=== PATIENT | female | born 1945 | race Caucasian/White ===

== ENCOUNTER → 2022-02-25 | Outpatient (CLI) | payer OTHER ==
[~2022-02-25] MED LIST: DEXTROAMPH SACC30 MG PO; OXYBUTYNIN CHLOR5 MG PO
== END | disposition home or self-care (01) ==
LOC: RESCLI 02:03
PROVIDERS: ATTEND Internal Medicine
DX: I48.91 Unspecified atrial fibrillation (principal); I73.9 Peripheral vascular disease, unspecified; D45 Polycythemia vera; Z88.8 Allergy status to other drugs, medicaments and biological substances; Z90.710 Acquired absence of both cervix and uterus; Z98.890 Other specified postprocedural states; Z79.01 Long term (current) use of anticoagulants; Z79.899 Other long term (current) drug therapy

== ENCOUNTER → 2022-06-02 | Outpatient (CLI) | payer OTHER | END | disposition home or self-care (01) | LOC: RESCLI 14:59 | PROVIDERS: ATTEND Family Medicine | DX: I48.91 Unspecified atrial fibrillation (principal); I73.9 Peripheral vascular disease, unspecified; M54.9 Dorsalgia, unspecified; D45 Polycythemia vera; Z98.890 Other specified postprocedural states; Z79.899 Other long term (current) drug therapy ==

== ENCOUNTER → 2022-11-24 | Outpatient (CLI) | payer OTHER | END | disposition home or self-care (01) | LOC: RESCLI 01:28 | PROVIDERS: ATTEND Internal Medicine | DX: I44.4 Left anterior fascicular block (principal); R00.0 Tachycardia, unspecified; I48.91 Unspecified atrial fibrillation; D45 Polycythemia vera; M54.9 Dorsalgia, unspecified; I73.9 Peripheral vascular disease, unspecified; J40 Bronchitis, not specified as acute or chronic; I82.90 Acute embolism and thrombosis of unspecified vein; Z98.890 Other specified postprocedural states; Z79.01 Long term (current) use of anticoagulants; Z79.899 Other long term (current) drug therapy; Z88.8 Allergy status to other drugs, medicaments and biological substances ==

== ENCOUNTER → 2024-05-27 | Outpatient (CLI) | payer MEDICARE ==
[~2024-05-27] MED LIST changes: +AMLODIPINE BESYL5 MG PO; +BENADRYL ALLERG25 M5 PO; +ELIQUIS5 M1 PO; +FLUCONAZOLE100 MG PO; +HYDREA500 M1 PO; +HYDROCODONE-AC1 EAC1 PO; +LIDOCAINE15 GM T; +LOPERAMIDE HCL2 M1 PO; +MELATONIN3 MG PO; +MEROPENEM-1 GM/50 ML IV; +METOPROLOL TART50 M1 PO; +MIRALAX17 GM PO; +MORPHINE SULFAT15 M7 PO; +NEURONTIN300 MG PO; +NYAMYC15 GM T; +ONDANSETRON HYDR4 MG PO; +REMERON15 M2 PO; +SILVADENE,SSD C50 GM T; +TYLENOL325 M1 PO; +VITAMIN B121000 MC3 PO; +VITAMIN C500 M8 PO; +VITAMIN D250 MCG PO; +ZYVOX600 MG PO; +[UNRECOGNIZED DRUG - OTHER] PO
== END | disposition home or self-care (01) ==
LOC: WOUNDCARE 00:15
PROVIDERS: ATTEND Nurse Practitioner Family
DX: L89.152 Pressure ulcer of sacral region, stage 2 (principal); L89.616 Pressure-induced deep tissue damage of right heel; L89.896 Pressure-induced deep tissue damage of other site; I70.234 Atherosclerosis of native arteries of right leg with ulceration of heel and midfoot; L97.811 Non-pressure chronic ulcer of other part of right lower leg limited to breakdown of skin; I70.238 Atherosclerosis of native arteries of right leg with ulceration of other part of lower leg; L97.411 Non-pressure chronic ulcer of right heel and midfoot limited to breakdown of skin; I10 Essential (primary) hypertension; I48.91 Unspecified atrial fibrillation; M19.90 Unspecified osteoarthritis, unspecified site; M79.7 Fibromyalgia; M10.9 Gout, unspecified; Z87.891 Personal history of nicotine dependence; Z86.73 Personal history of transient ischemic attack (TIA), and cerebral infarction without residual deficits; Z89.512 Acquired absence of left leg below knee; Z79.899 Other long term (current) drug therapy

== ENCOUNTER → 2024-06-02 | Outpatient (CLI) | payer MEDICARE | END | disposition home or self-care (01) | LOC: WOUNDCARE 01:57 | PROVIDERS: ATTEND Nurse Practitioner Family | DX: L89.896 Pressure-induced deep tissue damage of other site (principal); L89.152 Pressure ulcer of sacral region, stage 2; L89.616 Pressure-induced deep tissue damage of right heel; I70.234 Atherosclerosis of native arteries of right leg with ulceration of heel and midfoot; L97.411 Non-pressure chronic ulcer of right heel and midfoot limited to breakdown of skin; I70.238 Atherosclerosis of native arteries of right leg with ulceration of other part of lower leg; L97.811 Non-pressure chronic ulcer of other part of right lower leg limited to breakdown of skin; I48.91 Unspecified atrial fibrillation; I10 Essential (primary) hypertension; M19.90 Unspecified osteoarthritis, unspecified site; M10.9 Gout, unspecified; M79.7 Fibromyalgia; Z87.891 Personal history of nicotine dependence; Z89.512 Acquired absence of left leg below knee; Z79.899 Other long term (current) drug therapy ==

== ENCOUNTER → 2024-06-10 | Outpatient (CLI) | payer MEDICARE | END | disposition home or self-care (01) | LOC: WOUNDCARE 02:16 | PROVIDERS: ATTEND Nurse Practitioner Family | DX: L89.616 Pressure-induced deep tissue damage of right heel (principal); L89.896 Pressure-induced deep tissue damage of other site; L89.152 Pressure ulcer of sacral region, stage 2; L89.151 Pressure ulcer of sacral region, stage 1; I70.234 Atherosclerosis of native arteries of right leg with ulceration of heel and midfoot; L97.411 Non-pressure chronic ulcer of right heel and midfoot limited to breakdown of skin; I70.238 Atherosclerosis of native arteries of right leg with ulceration of other part of lower leg; L97.811 Non-pressure chronic ulcer of other part of right lower leg limited to breakdown of skin; I10 Essential (primary) hypertension; L60.2 Onychogryphosis; B35.1 Tinea unguium; I48.91 Unspecified atrial fibrillation; M19.90 Unspecified osteoarthritis, unspecified site; M10.9 Gout, unspecified; Z89.512 Acquired absence of left leg below knee; Z87.891 Personal history of nicotine dependence; Z79.899 Other long term (current) drug therapy ==

== ENCOUNTER → 2024-06-16 | Outpatient (CLI) | payer MEDICARE | END | disposition home or self-care (01) | LOC: WOUNDCARE 02:42 | PROVIDERS: ATTEND Nurse Practitioner Family | DX: L89.896 Pressure-induced deep tissue damage of other site (principal); L89.616 Pressure-induced deep tissue damage of right heel; L89.152 Pressure ulcer of sacral region, stage 2; I70.234 Atherosclerosis of native arteries of right leg with ulceration of heel and midfoot; L97.411 Non-pressure chronic ulcer of right heel and midfoot limited to breakdown of skin; I70.238 Atherosclerosis of native arteries of right leg with ulceration of other part of lower leg; L97.811 Non-pressure chronic ulcer of other part of right lower leg limited to breakdown of skin; L60.2 Onychogryphosis; I48.91 Unspecified atrial fibrillation; I10 Essential (primary) hypertension; B35.1 Tinea unguium; M19.90 Unspecified osteoarthritis, unspecified site; M10.9 Gout, unspecified; M79.7 Fibromyalgia; Z87.891 Personal history of nicotine dependence; Z89.512 Acquired absence of left leg below knee; Z79.899 Other long term (current) drug therapy ==

== ENCOUNTER → 2024-06-23 | Outpatient (CLI) | payer MEDICARE | END | disposition home or self-care (01) | LOC: WOUNDCARE 00:42 | PROVIDERS: ATTEND Nurse Practitioner Family | DX: L89.616 Pressure-induced deep tissue damage of right heel (principal); L89.896 Pressure-induced deep tissue damage of other site; I70.238 Atherosclerosis of native arteries of right leg with ulceration of other part of lower leg; L97.811 Non-pressure chronic ulcer of other part of right lower leg limited to breakdown of skin; I70.234 Atherosclerosis of native arteries of right leg with ulceration of heel and midfoot; L97.411 Non-pressure chronic ulcer of right heel and midfoot limited to breakdown of skin; L89.152 Pressure ulcer of sacral region, stage 2; I10 Essential (primary) hypertension; L60.2 Onychogryphosis; B35.1 Tinea unguium; I48.91 Unspecified atrial fibrillation; M19.90 Unspecified osteoarthritis, unspecified site; M10.9 Gout, unspecified; F17.210 Nicotine dependence, cigarettes, uncomplicated; Z86.73 Personal history of transient ischemic attack (TIA), and cerebral infarction without residual deficits; Z89.512 Acquired absence of left leg below knee; Z79.899 Other long term (current) drug therapy ==

== ENCOUNTER → 2024-06-30 | Outpatient (CLI) | payer MEDICARE | END | disposition home or self-care (01) | LOC: WOUNDCARE 02:19 | PROVIDERS: ATTEND Nurse Practitioner Family | DX: L89.896 Pressure-induced deep tissue damage of other site (principal); L89.616 Pressure-induced deep tissue damage of right heel; L89.152 Pressure ulcer of sacral region, stage 2; I70.234 Atherosclerosis of native arteries of right leg with ulceration of heel and midfoot; L97.411 Non-pressure chronic ulcer of right heel and midfoot limited to breakdown of skin; I70.238 Atherosclerosis of native arteries of right leg with ulceration of other part of lower leg; L97.811 Non-pressure chronic ulcer of other part of right lower leg limited to breakdown of skin; L60.2 Onychogryphosis; B35.1 Tinea unguium; I48.91 Unspecified atrial fibrillation; M19.90 Unspecified osteoarthritis, unspecified site; M10.9 Gout, unspecified; F17.210 Nicotine dependence, cigarettes, uncomplicated; Z86.73 Personal history of transient ischemic attack (TIA), and cerebral infarction without residual deficits; Z79.899 Other long term (current) drug therapy; Z89.512 Acquired absence of left leg below knee ==

== ENCOUNTER 2024-07-08 15:29 | Emergency (ER) | payer MEDICARE ==
[~2024-07-08] VITALS: Ht 157.4 cm; Wt 68.0 kg
[~2024-07-08 15:29] MED LIST changes: -CLEOCIN HCL300 MG PO
[2024-07-08 16:04] LABS: HEMATOCRIT 29.1 % (37.0-47.0); MEAN CELL VOLUME 89.5 fl (81.0-99.0); MEAN CORPUSCULAR HGB 27.1 pg (27.0-31.0); MEAN CORPUSCULAR HGB CONC 30.2 g/dl (33.0-37.0); NUCLEATED RED BLOOD CELL 0.5 % (0.0-0.0); PLATELET COUNT AUTOMATED 165 10*3/uL (130-400); RED BLOOD COUNT 3.25 10*6/uL (4.10-5.10); RED CELL DISTRI WIDTH 16.3 % (0-14.5); WHITE BLOOD COUNT 7.6 10*3/uL (4.8-10.8)
[2024-07-08 16:20] LABS: POTASSIUM 4.5 mmol/L (3.4-5.1)
[2024-07-08 16:25] LABS: MANUAL DIFF REFLEX YES
[2024-07-08 16:28] LABS: OVALOCYTES MODERATE; PLATELET SUFFICIENCY NORMAL (NORMAL); SCHISTOCYTES FEW; TOTAL CELLS COUNTED 100 #CELLS
[2024-07-08] MEDS ORDERED: CLEOCIN HCL300 MG PO (17:29)
[2024-07-08] MEDS ORDERED: CLINDAMYCIN HCL 300 MG CAPSULE PO ONE (17:30)
== END 2024-07-08 17:37 | disposition home or self-care (01) ==
LOC: ED 15:29
PROVIDERS: Nurse Practitioner Family
DX: L03.115 Cellulitis of right lower limb (principal); M79.662 Pain in left lower leg; L53.9 Erythematous condition, unspecified; F17.200 Nicotine dependence, unspecified, uncomplicated; Z88.1 Allergy status to other antibiotic agents; Z88.8 Allergy status to other drugs, medicaments and biological substances; Z91.041 Radiographic dye allergy status; Z79.899 Other long term (current) drug therapy; Z89.512 Acquired absence of left leg below knee; Z90.710 Acquired absence of both cervix and uterus

== ENCOUNTER → 2024-07-08 | Outpatient (CLI) | payer MEDICARE ==
[~2024-07-08] MED LIST changes: +CLEOCIN HCL300 MG PO
== END | disposition home or self-care (01) ==
LOC: WOUNDCARE 02:02
PROVIDERS: ATTEND Nurse Practitioner Family
DX: L89.616 Pressure-induced deep tissue damage of right heel (principal); L89.896 Pressure-induced deep tissue damage of other site; L89.512 Pressure ulcer of right ankle, stage 2; I70.234 Atherosclerosis of native arteries of right leg with ulceration of heel and midfoot; L97.411 Non-pressure chronic ulcer of right heel and midfoot limited to breakdown of skin; I70.238 Atherosclerosis of native arteries of right leg with ulceration of other part of lower leg; L97.811 Non-pressure chronic ulcer of other part of right lower leg limited to breakdown of skin; L60.2 Onychogryphosis; B35.1 Tinea unguium; I10 Essential (primary) hypertension; I48.91 Unspecified atrial fibrillation; M19.90 Unspecified osteoarthritis, unspecified site; M10.9 Gout, unspecified; Z86.73 Personal history of transient ischemic attack (TIA), and cerebral infarction without residual deficits; Z89.512 Acquired absence of left leg below knee; Z98.890 Other specified postprocedural states; Z87.891 Personal history of nicotine dependence; Z79.899 Other long term (current) drug therapy

== ENCOUNTER → 2024-07-14 | Outpatient (CLI) | payer MEDICARE ==
[~2024-07-14] MED LIST changes: +CLEOCIN HCL300 MG PO
== END | disposition home or self-care (01) ==
LOC: WOUNDCARE 02:14
PROVIDERS: ATTEND Nurse Practitioner Family
DX: L89.616 Pressure-induced deep tissue damage of right heel (principal); L89.152 Pressure ulcer of sacral region, stage 2; I70.234 Atherosclerosis of native arteries of right leg with ulceration of heel and midfoot; L97.411 Non-pressure chronic ulcer of right heel and midfoot limited to breakdown of skin; I70.238 Atherosclerosis of native arteries of right leg with ulceration of other part of lower leg; L97.811 Non-pressure chronic ulcer of other part of right lower leg limited to breakdown of skin; L60.2 Onychogryphosis; B35.1 Tinea unguium; I48.91 Unspecified atrial fibrillation; I10 Essential (primary) hypertension; M19.90 Unspecified osteoarthritis, unspecified site; M10.9 Gout, unspecified; M79.7 Fibromyalgia; Z89.512 Acquired absence of left leg below knee

== ENCOUNTER 2025-03-03 22:43 | Inpatient (IN) | payer OTHER ==
[~2025-03-03] VITALS: Ht 157.5 cm; Wt 94.3 kg
[~2025-03-03 22:43] MED LIST changes: +CALCIUM 500 MG1 EAC5 PO; +DICYCLOMINE HYD20 MG PO; +IRON325 M1 PO; +KLAYESTA15 GM T; +NEXIUM40 M1 PO; +Ondansetron4 MG PO; +TYLENOL325 M2 PO; +VITAMIN C500 M4 PO; +VITAMIN D350 MC3 PO; +ZOLOFT25 MG PO
[2025-03-03] MEDS ORDERED: ATROPINE SULFATE 1% 2 ML BOTTLE SL PRN (23:20)
[2025-03-03] MEDS ORDERED: OXYCODONE 20 MG/ML SL PRN (23:20)
[2025-03-03] MEDS ORDERED: HYDROmorphONE Hydrochloride 0.5 MG/0.5 ML SYRINGE IV PRN (23:20)
[2025-03-04] VITALS: BP 62/37
[2025-03-04] MEDS ORDERED: ATROPINE SULFATE 1% 2 ML BOTTLE SL PRN (07:30)
[2025-03-04 08:00] VITALS: BP 88/66
[2025-03-04] MEDS ORDERED: HYDROmorphONE Hydrochloride 0.5 MG/0.5 ML SYRINGE IV PRN (13:25)
[2025-03-04 16:00] VITALS: BP 71/54
[2025-03-04 20:00] VITALS: BP 36/14
[2025-03-05] VITALS: BP 57/21
[2025-03-05 08:00] VITALS: BP 53/10
[2025-03-05 12:00] VITALS: BP 40/0
== END 2025-03-05 17:56 | DRG 189 ==
LOC: 4E 22:43
PROVIDERS: ADMIT Student in an Organized Health Care Education/Training Program; ATTEND Student in an Organized Health Care Education/Training Program
DX: J96.00 Acute respiratory failure, unspecified whether with hypoxia or hypercapnia (principal); E43 Unspecified severe protein-calorie malnutrition; N18.6 End stage renal disease; N39.0 Urinary tract infection, site not specified; Z16.12 Extended spectrum beta lactamase (ESBL) resistance; Z16.21 Resistance to vancomycin; E87.1 Hypo-osmolality and hyponatremia; N17.9 Acute kidney failure, unspecified; C92.10 Chronic myeloid leukemia, BCR/ABL-positive, not having achieved remission; I12.0 Hypertensive chronic kidney disease with stage 5 chronic kidney disease or end stage renal disease; B96.29 Other Escherichia coli [E. coli] as the cause of diseases classified elsewhere; E87.5 Hyperkalemia; E16.2 Hypoglycemia, unspecified; I95.9 Hypotension, unspecified; Z51.5 Encounter for palliative care; Z68.38 Body mass index [BMI] 38.0-38.9, adult